=== PATIENT | female | born 1980 | race Caucasian/White ===

== ENCOUNTER 2016-08-06 16:23 | Inpatient (IN) | payer OTHER ==
[~2016-08-06] VITALS: Ht 157.5 cm; Wt 81.0 kg
[2016-08-06] MEDS ORDERED: PREN1TAB79 PO (16:47)
--- NOTE | 2016-08-06 17:14 | RADRPT ---
PROCEDURE: US biophysical profile. CLINICAL INDICATION: Decreased motion. TECHNIQUE: Multiple sonographic images of the uterus were obtained. The images were revi ewed on a PACS workstation. COMPARISON: No prior studies are available for comparison. FINDINGS: There is a single live intrauterine gestation. heart rate is 129 beats per minute. The position is cephalic. The placenta is posterior grade II with no abruption or previa. The MG is 24 cm. (Normal = 5-20 cm.) Breathing Movement: 2 Gross Body Movement: 2 Tone: 2 Qualitative Amniotic Fluid Volume: 2 TOTAL: 8 IMPRESSION: 1. The biophysical score is 8/8. 2. Mild polyhydramnios. RPTAT: QQ .Berny Campo MD, Date Time Electronically viewed and signed by .Berny Campo MD, on 08/06/2016 17:14 .R/
--- NOTE | 2016-08-06 17:22 | RADRPT ---
PROCEDURE: Obstetrical ultrasound. CLINICAL INDICATION: , evaluation. Pelvic pain. TECHNIQUE: Transabdominal sonographic images of the pelvis are obtained. COMPARISON: 12/19/2008 OB ultrasound FINDINGS: Single intrauterine gestation. There is a cephalic presentation. Measurements were made in order to determine age. The results are as follows: BPD = 9.53 cm HC = 35.53 cm AC = 33.12 cm FL = 7.09 cm Heart rate = 0.44 beats per minute The placenta is posterior. There is no evidence for an abruption or placenta previa. Ovaries are not visualized. IMPRESSION: Single intrauterine gestation of approximately 37 weeks 5 days by ultrasound criteria. [place] estimated weight = 3151 g; 71 percentile for gestational age of 36 weeks 4 days. RPTAT: AADD .Sharad Cox MD, Date Time Electronically viewed and signed by .Sharad Cox MD, on 08/06/2016 17:22 .B/
--- NOTE | 2016-08-06 19:19 | TRIAGE ---
OB Triage Datetime Report Generated by CPN: 08/06/2016 19:18 Datetime: 08/06/2016 19:07 Stage of : OB Triage Maternal Assessment Level of Consciousness: Fully Conscious DTR's/Clonus: DTRs 1+ Headache: Denies Breath Sounds, Left: Clear and Equal Breath Sounds, Right: Clear and Equal Nausea/Vomiting: Denies RUQ Epigastric Pain: Denies Labor Evaluation Frequency: 5-12 Monitor Mode: External Duration (sec)2399: 40-90 Quality: Mild Pattern: Normal: <= 5 Contractions in 10 Minutes Resting Tone [place]: Relaxed Heart Rate FHR Baseline Rate: 135 Monitor Mode: External US Variability: Moderate 6-25 bpm Accelerations: 15X15 Decelerations: None Category: Category I Pain Assessment Pain Scale: 9 Pain Presence: Intermittent Pain Type: Contraction Pain Location: Back Pain Goal: 3 Pain Relief Measures: Comfort Measures Membrane Status: Intact Datetime: 08/06/2016 18:00 Stage of : OB Triage Maternal Assessment Level of Consciousness: Fully Conscious DTR's/Clonus: DTRs 1+ Headache: Denies Breath Sounds, Left: Clear and Equal Breath Sounds, Right: Clear and Equal Nausea/Vomiting: Denies RUQ Epigastric Pain: Denies Labor Evaluation Frequency: 2-16 Monitor Mode: External Duration (sec)2399: 40-90 Quality: Mild Pattern: Normal: <= 5 Contractions in 10 Minutes Resting Tone [place]: Relaxed Heart Rate FHR Baseline Rate: 135 Monitor Mode: External US Variability: Moderate 6-25 bpm Accelerations: 15X15 Decelerations: None Category: Category I Pain Assessment Pain Scale: 8 Pain Presence: Intermittent Pain Type: Contraction Pain Location: Back Pain Goal: 3 Pain Relief Measures: Comfort Measures Membrane Status: Intact Datetime: 08/06/2016 16:59 Maternal Assessment Level of Consciousness: Fully Conscious DTR's/Clonus: DTRs 1+ Headache: Denies Blurred Vision: No Respiratory Effort: Unlabored Breath Sounds, Left: Clear and Equal Breath Sounds, Right: Clear and Equal Nausea/Vomiting: Denies RUQ Epigastric Pain: Denies Facial Edema: None Labor Evaluation Frequency: 2-6 Monitor Mode: External Duration (sec)2399: 40-90 Quality: Mild Pattern: Normal: <= 5 Contractions in 10 Minutes Resting Tone [place]: Relaxed Heart Rate FHR Baseline Rate: 135 Monitor Mode: External US Variability: Moderate 6-25 bpm Accelerations: 15X15 Decelerations: None Category: Category I Pain Assessment Pain Scale: 8 Pain Presence: Intermittent Pain Type: Contraction Pain Location: Back Pain Goal: 3 Pain Relief Measures: Comfort Measures Membrane Status: Intact Datetime: 08/06/2016 16:40 EGA: 36.4 Datetime: 08/06/2016 16:38 Vaginal Exam Dilatation (cms): 2.5 Effacement (%): 80 Station: -2 Exam By: LUZ ELENA GARCIA Vaginal Bleeding: None Cervix, Consistency: Soft Cervix, Position: Midposition Presentation 'A': Cephalic Datetime: 08/06/2016 16:26 Assessment Type: Triage Maternal Assessment Level of Consciousness: Fully Conscious DTR's/Clonus: DTRs 2+; No Clonus Headache: Denies Blurred Vision: No Respiratory Effort: Unlabored; Regular Rhythm; Equal Expansion Breath Sounds, Left: Clear and Equal Breath Sounds, Right: Clear and Equal Nausea/Vomiting: Denies RUQ Epigastric Pain: Denies Lower Extremities Edema: None Degree: None Upper Extremities Edema: None Degree: None Facial Edema: None Fall Risk Assessment History of Falling: (0) No Secondary Diagnosis: (0) No Ambulatory Aid: (0) Bedrest/Nurse Assist IV Therapy: (0) No Gait: (0) Normal/Bedrest/Immobile Mental Status: (0) Oriented to Own Ability Fall Score: 0 Fall Risk Score Definition: No Risk: No action required Datetime: 08/06/2016 16:18 Time of Arrival: 08/06/2016 16:18 Arrived By: Wheelchair Arrived From: Dr. Arthur Chief Complaint: PT CAME IN C/O UC'S Q 5 MIN AND VAGINAL PRESSURE SINCE 3 DAYS AGO. PT CAME FROM [facility] WITH A PRESCRIPTION FOR BPP NST AND EFW Movement: Present Contractions: Denies/Absent Rupture of Membranes: Denies Vaginal Discharge: Denies Recent Sexual Intercouse: Denies Abdominal Trauma: Not Applicable Additional Patient Complaints: NONE Time Provider Notified: 08/06/2016 18:45 Provider Notified: JACKELINE Initial Plan: NST BPP AND EFW
[2016-08-06] MEDS ORDERED: LACTATED RINGER'S 1,000 ML IV PRN (19:44)
[2016-08-06] MEDS: LACTATED RINGER'S 1,000 ML IV SCH ×2 (19:47→22:46)
[2016-08-06] MEDS ORDERED: OXYTOCIN 30 UNITS/LR 500 ML IV PRN (20:00)
[2016-08-06] MEDS ORDERED: BUTORPHANOL 2 MG INJ IV PRN (20:00)
[2016-08-06] MEDS ORDERED: CARBOPROST 250 MCG INJ IM PRN (20:00)
[2016-08-06] MEDS ORDERED: METHYLERGONOVINE 0.2 MG INJ IM PRN (20:00)
[2016-08-06] MEDS ORDERED: IBUPROFEN 600 MG TAB PO PRN (20:00)
[2016-08-06] MEDS ORDERED: OXYTOCIN 30 UNITS/LR 500 ML IV SCH ×2 (20:00)
[2016-08-06] MEDS ORDERED: LIDOCAINE 1% (MPF) 30 ML INJ INJ PRN (20:00)
[2016-08-06] MEDS ORDERED: MISOPROSTOL 200 MCG TAB PR PRN (20:00)
[2016-08-06 20:13] LABS: ADD SCAN DIFF NO
[2016-08-06 20:27] VITALS: Ht 157.5 cm; Wt 81.0 kg
[2016-08-06 20:29] LABS: INR 0.89; PT RATIO 0.9
[2016-08-06 20:30] LABS: BASOPHILS % 0.1 % (0.0-2.0); EOSINOPHILS % 0.3 % (0.0-7.0); HEMATOCRIT 37.2 % (37.0-47.0); HEMOGLOBIN 12.6 g/dl (12.0-16.0); LYMPHOCYTES # 1.8 10^3/ul (0.8-2.9); LYMPHOCYTES % 18.4 % (15.0-51.0); MEAN CORPUSCULAR HEMOGLOBIN 28.8 pg (29.0-33.0); MEAN CORPUSCULAR HGB CONC 33.9 g/dl (32.0-37.0); MEAN CORPUSCULAR VOLUME 85.1 fl (82.0-101.0); MEAN PLATELET VOLUME 11.6 fl (7.4-10.4); MONOCYTE # 0.5 10^3/ul (0.3-0.9); NEUTROPHIL # 7.3 10^3/ul (1.6-7.5); NEUTROPHILS % 75.7 % (39.0-77.0); PARTIAL THROMBOPLASTIN TIME 25.7 Sec (25.0-35.0); PLATELET COUNT 179 10^3/UL (140-415); RED BLOOD COUNT 4.37 10^6/ul (4.20-5.40); RED CELL DISTRIBUTION WIDTH 13.9 % (11.5-14.5); WHITE BLOOD COUNT 9.7 10^3/ul (4.8-10.8)
[2016-08-06 20:45] LABS: BARBITURATES NEGATIVE (NEGATIVE); BENZODIAZEPINES NEGATIVE (NEGATIVE); CANNABINOIDS NEGATIVE (NEGATIVE); COCAINE NEGATIVE (NEGATIVE); OPIATES NEGATIVE (NEGATIVE)
[2016-08-07] MEDS: LACTATED RINGER'S 1,000 ML IV SCH ×3 (07:25→16:46)
--- NOTE | 2016-08-07 10:22 | HP ---
Date/Time of Note Date/Time of Note DATE: 08/07/16 TIME: 10:21 OB - History Hx of Present Free Text/Dictation @36+wks GA in labor : 5 Para: 2 Care: Good Care Ultrasounds: Normal mid trimester US Medical Complications: None Past Family/Social History * Past Medical, Surgical, Family and Obstetric Histories reviewed from chart. OB Admission Exam Physical Exam Abdomen: WNL Extremities: Normal Cervical Dilatation: 3cm Effacement: 75% Station: -1 Membranes: Intact Heart Rate: 140's Accelerations: Accelerations Present Decelerations: No Decelerations Varibility: Moderate Contractions on Admission: 6-10 Minutes Apart Last 72 hours Lab Results CBC & BMP 08/06/16 19:40 OB Assessment/Plan Reason for admission: observation Plan: Expectant Management JAY VIVEROS M.D. August 07, 2016 10:22
--- NOTE | 2016-08-07 15:55 | QN ---
Documentation Comment Patient progressed to /-1 AROm light Meconium Will start pitocin JAY VIVEROS M.D. August 07, 2016 15:55
[2016-08-07] MEDS ORDERED: OXYTOCIN 30 UNITS/LR 500 ML IV SCH (16:30)
[2016-08-07] MEDS ORDERED: FENTAnyl 2MCG/ML-ROPIV 0.2% 100 ML ONE (16:59)
[2016-08-07] MEDS ORDERED: ONDANSETRON 4 MG INJ IV PRN (17:00)
[2016-08-07] MEDS ORDERED: NALOXONE (0.4 MG/ML) INJ IV PRN (17:00)
[2016-08-07] MEDS ORDERED: FENTAnyl 2MCG/ML-ROPIV 0.2% 100 ML BAG EPI SCH (17:00)
[2016-08-07] MEDS ORDERED: EPHEDrine SULFATE 50 MG/5 ML SYG IV PRN (17:00)
[2016-08-08 00:40] VITALS: BP 111/60; PULSE 79; RESP 18
[2016-08-08] MEDS ORDERED: LACTATED RINGER'S 1,000 ML IV* SCH (01:09)
[2016-08-08] MEDS ORDERED: OXYTOCIN 30 UNITS/LR 500 ML IV PRN (01:30)
[2016-08-08] MEDS ORDERED: CARBOPROST 250 MCG INJ IM PRN (01:30)
[2016-08-08] MEDS ORDERED: METHYLERGONOVINE 0.2 MG INJ IM PRN (01:30)
[2016-08-08] MEDS ORDERED: LANOLIN 7 GM TUBE TOP PRN (01:30)
[2016-08-08] MEDS ORDERED: OXYCODONE/ASPIRIN (4.88/325) TAB PO PRN (01:30)
[2016-08-08] MEDS ORDERED: ZOLPIDEM 5 MG TAB PO PRN (01:30)
[2016-08-08] MEDS ORDERED: MISOPROSTOL 200 MCG TAB PR PRN (01:30)
[2016-08-08] MEDS ORDERED: BENZOCAINE 20% 56 ML SPRAY TOP PRN (01:30)
[2016-08-08] MEDS ORDERED: SENNA/DOCUSATE NA (8.6MG/50MG) TAB PO PRN (01:30)
[2016-08-08] MEDS ORDERED: WITCH HAZEL/GLYCERIN PAD PR PRN (01:30)
[2016-08-08 04:00] VITALS: BP 106/57; PULSE 80; RESP 18
[2016-08-08] MEDS: IBUPROFEN 600 MG TAB PO SCH ×4 (05:35→23:46)
[2016-08-08 08:00] VITALS: BP 112/72; RESP 20
[2016-08-08 08:35] LABS: ADD SCAN DIFF NO
[2016-08-08 08:39] LABS: BASOPHILS % 0.2 % (0.0-2.0); EOSINOPHILS % 0.2 % (0.0-7.0); HEMATOCRIT 34.1 % (37.0-47.0); HEMOGLOBIN 11.5 g/dl (12.0-16.0); LYMPHOCYTES # 1.5 10^3/ul (0.8-2.9); LYMPHOCYTES % 13.6 % (15.0-51.0); MEAN CORPUSCULAR HEMOGLOBIN 28.8 pg (29.0-33.0); MEAN CORPUSCULAR HGB CONC 33.7 g/dl (32.0-37.0); MEAN CORPUSCULAR VOLUME 85.3 fl (82.0-101.0); MEAN PLATELET VOLUME 11.4 fl (7.4-10.4); MONOCYTE # 0.6 10^3/ul (0.3-0.9); MONOCYTES % 5.6 % (0.0-11.0); NEUTROPHIL # 8.7 10^3/ul (1.6-7.5); NEUTROPHILS % 79.8 % (39.0-77.0); PLATELET COUNT 169 10^3/UL (140-415); RED CELL DISTRIBUTION WIDTH 13.6 % (11.5-14.5); WHITE BLOOD COUNT 10.9 10^3/ul (4.8-10.8)
[2016-08-08] MEDS: SENNA/DOCUSATE NA (8.6MG/50MG) TAB PO SCH ×2 (09:08→20:53)
[2016-08-08] MEDS: MAGNESIUM HYDROXIDE 30ML CUP PO SCH ×2 (09:08→20:52)
[2016-08-08 16:00] VITALS: BP 102/52; PULSE 79; RESP 18
[2016-08-08 20:15] VITALS: BP 102/55; PULSE 79; RESP 18
[2016-08-09 04:00] VITALS: BP 98/54; PULSE 76; RESP 18
[2016-08-09] MEDS: IBUPROFEN 600 MG TAB PO SCH ×2 (05:56→11:32)
[2016-08-09 08:33] VITALS: BP 107/55; PULSE 80; RESP 18
[2016-08-09] MEDS ORDERED: DIPHTH/TET/ACEL PERTUSS (ADULT) 0.5 ML VIAL IM* ONE (09:00)
[2016-08-09] MEDS: SENNA/DOCUSATE NA (8.6MG/50MG) TAB PO SCH (09:20)
[2016-08-09] MEDS: MAGNESIUM HYDROXIDE 30ML CUP PO SCH (09:32)
--- NOTE | 2016-08-09 09:33 | QN ---
Documentation Comment Late Entry Note 08/08/16 PPD#1 is stable afebrile tolerates diet No VB +BM +voids No sign of Depression VS stable Gen NAD Abd soft NT ND Genitalia No blood at perinium --->Discharge Home JAY VIVEROS M.D. August 09, 2016 09:33
--- NOTE | 2016-08-09 09:34 | DS ---
Date/Time of Note Date/Time of Note DATE: 08/09/16 TIME: 09:33 Discharge Summary Admission/Discharge Info Admit Date/Time August 06, 2016 at 18:45 Discharge Date/Time July Final Diagnosis Labor Full term Patient Condition: Stable Procedures Vaginal deivery Hospital Course Uneventful Home Meds Reported Medications Vit W-Ca,Fe,FA(<1 mg) ( Vitamins) 1 Each Tablet, 1 EACH PO, TAB 08/06/16 Primary Care Provider JAY Harrington M.D. August 09, 2016 09:34
--- NOTE | 2016-08-26 11:20 | LDN ---
Date/Time of Note Date/Time of Note DATE: 08/26/16 TIME: 11:19 Delivery Summary Placenta Delivered: Spontaneously Meconium: none Episiotomy: No Estimated blood loss: 200 Sponge & Needle done & correct: Yes All needle counts correct: Yes Any foreign bodies felt in the: No Problems: Infant Delivery Information Apgars 1 Minute: 9 5 Minute: 9 Suctioning Nose & mouth suctioned at ruth: Yes Delee suction performed: Yes Umbilical Cord Umbilical cord with: 3 Vessels Cord presentations: no nuchal cord Mother & Baby Disposition Disposition Mom & Baby to Maternity; Good: Yes Baby to NICU: No JAY VIVEROS M.D. Aug 26, 2016 11:20
== END 2016-08-09 16:45 | disposition home or self-care (01) | DRG 775 ==
LOC: OBT 16:23 → L-D 16:24 → OBT 18:45 → PP1 08-08 00:42
PROVIDERS: ADMIT Obstetrics & Gynecology; ATTEND Obstetrics & Gynecology
PROC: 10E0XZZ Delivery of Products of Conception, External Approach (ICD-10-PCS; principal; 2016-08-07)
PROC: 3E00X4Z Introduction of Serum, Toxoid and Vaccine into Skin and Mucous Membranes, External Approach (ICD-10-PCS; 2016-08-09)
DX: O60.14X0 Preterm labor third trimester with preterm delivery third trimester, not applicable or unspecified (principal); Z23 Encounter for immunization; Z3A.36 36 weeks gestation of pregnancy; Z37.0 Single live birth
CPT/HCPCS: 62319; 76815; 76818; 80307; 85025; 85610; 85730; 86592; 86900; 86901; 90715; A4310; G0463; J2590; J3010; J7120

== ENCOUNTER 2018-05-19 22:27 | Inpatient (IN) | payer MEDICAID ==
[~2018-05-19] VITALS: Ht 157.5 cm; Wt 85.0 kg
[2018-05-19 22:58] VITALS: Ht 157.5 cm; Wt 85.0 kg
[2018-05-19] MEDS ORDERED: LACTATED RINGER'S 1,000 ML IV PRN (23:32)
--- NOTE | 2018-05-19 23:45 | HP ---
Date/Time of Note Date/Time of Note DATE: 05/19/18 TIME: 23:36 OB - History Hx of Present Free Text/Dictation 38 y.o was sent from clinic for IOL at 39w2d with intact membrane. EFM shows UC's q2-6min CAT I tracing Initial VE /-2 GBS neg Her care initiated at 11w6d, had unevenful course. admitted for augmentation with pitocin. Chief Complaint: IOL Estimated Due Date: May 22, 2018 : 5 Para: 3 Spontaneous : 1 Therapeutic : 0 Care: Good Care Ultrasounds: Normal mid trimester US Obstetrical Complications: None Medical Complications: None Past Family/Social History * Past Medical, Surgical, Family and Obstetric Histories reviewed from chart. Blood Type: O+ Rubella: immune RPR/VDRL: Negative GBS Status: Negative HBsAG: Negative OB Assessment/Plan Reason for admission: induction of labor Other Assessment: IUP 39w2d in early labor Plan: Other (augmentation) VAN GRAVES MD May 19, 2018 23:45
[2018-05-20] MEDS ORDERED: BUTORPHANOL 2 MG INJ IV PRN
[2018-05-20] MEDS ORDERED: LIDOCAINE 1% (MPF) 30 ML INJ INJ PRN
[2018-05-20] MEDS ORDERED: IBUPROFEN 600 MG TAB PO PRN
[2018-05-20 00:50] VITALS: BP 115/68; PULSE 86; RESP 18
[2018-05-20] MEDS: LACTATED RINGER'S 1,000 ML IV SCH ×2 (01:42→12:15)
--- NOTE | 2018-05-20 08:09 | PREAC ---
Date/Time of Note Date/Time of Note DATE: 05/20/18 TIME: 08:08 Anesthesia Eval and Record Evaluation Time Pre-Procedure Interview DATE: 05/20/18 TIME: 08:08 Age 38 Sex female NPO: 8 hrs Preoperative diagnosis labor pain Planned procedure epidural Past Medical History Past Medical History: Includes : Gestational age: (39.3) Surgery & Anesthesia Issues No known issue Meds Anticoagulation: No Beta Amriela within 24 hr: No Reason Beta Mariela not given: Pt. not on B-Mariela No Active Prescriptions or Reported Meds Current Medications Lactated Ringer's 1,000 ml @ 125 mls/hr Q8H IV Last administered on 05/20/18at 01:42; Admin Dose 125 MLS/HR; Start 05/19/18 at 23:32 Butorphanol Tartrate (Stadol) 2 mg Q2H PRN IV .PAIN; Start 05/20/18 at 00:00 Lidocaine (Xylocaine 1% (Mpf)) 30 ml ONCE PRN INJ .EPISIOTOMY; Start 05/20/18 at 00:00 Oxytocin/Lactated Ringer's 500 ml @ 500 mls/hr ONCE POST IV ; Start 05/20/18 at 00:00 Oxytocin/Lactated Ringer's 500 ml @ 125 mls/hr POST IV ; Start 05/20/18 at 00:00 Ibuprofen (Motrin) 600 mg ONCE PRN PO .PAIN 1-5; Start 05/20/18 at 00:00 Lactated Ringer's 1,000 ml @ 2,000 mls/hr Q30M PRN IV .ANESTHESIA; Start 05/19/18 at 23:32 Oxytocin/Lactated Ringer's 500 ml @ 0 mls/hr ONCE PRN IV .VAGINAL BLEEDING; Start 05/20/18 at 00:00 Methylergonovine Maleate (Methergine) 0.2 mg ONCE PRN IM .VAGINAL BLEEDING; Start 05/20/18 at 00:00 Carboprost Tromethamine (Hemabate) 250 mcg ONCE PRN IM .VAGINAL BLEEDING; Start 05/20/18 at 00:00 Misoprostol (Cytotec) 1,000 mcg ONCE PRN [place] .VAGINAL BLEEDING; Start 05/20/18 at 00:00 Oxytocin/Lactated Ringer's 500 ml @ 0 mls/hr FOR INDUCTION IV Last administered on 05/20/18at 04:51; Admin Dose 1 MLS/HR; Start 05/20/18 at 00:00 Meds reviewed: Yes Allergies Coded Allergies: No Known Allergy (Unverified , 08/06/16) Allergies Reviewed: Yes Labs/Studies Labs Reviewed: Reviewed by anesthesiologist Result Diagram: 05/20/18 0130 Laboratory Tests 05/20/18 01:30 Blood Bank Test 05/20/18 01:30 Antibody Screen NEGATIVE Blood Type O POSITIVE Rh Immune Globulin Candidate NO test: Positive Studies: ECG (n/a), CXR (n/a) Pre-procedure Exam Last vitals Vital Signs Date Temp Pulse Resp B/P (MAP) Pulse Ox O2 O2 Flow FiO2 Time Delivery Rate 05/20/18 98.2 86 18 115/68 00:50 (84) Airway: Adequate mouth opening Mallampati: Mallampati I Teeth: Normal Lung: Normal Heart: Normal ASA Physical Status ASA physical status: 2 Emergency: None Planned Anesthetic Neuraxial: Epidural Pre-operative Attestations Prior to commencing anesthesia and surgery, the patient was re-evaluated, there was verification of: *The patient's identity *The results of appropriate recent lab work and preoperative vital signs *The above evaluation not changing prior to induction *Anesthetic plan, risk benefits, alternative and complications discussed with patient/family; questions answered; patient/family understands, accepts and wishes to proceed. CHACHA BARROS MD May 20, 2018 08:09
[2018-05-20] MEDS ORDERED: FENTAnyl 2MCG/ML-ROPIV 0.2% 100 ML ONE (08:19)
[2018-05-20] MEDS ORDERED: FENTAnyl 2MCG/ML-ROPIV 0.2% 100 ML BAG EPI SCH (09:30)
[2018-05-20] MEDS ORDERED: ONDANSETRON 4 MG INJ IV PRN (09:30)
[2018-05-20] MEDS ORDERED: NALOXONE (0.4 MG/ML) INJ IV PRN (09:30)
--- NOTE | 2018-05-20 14:50 | LDN ---
Date/Time of Note Date/Time of Note DATE: 05/20/18 TIME: 14:49 Delivery Summary term Placenta Delivered: Spontaneously Meconium: none Episiotomy: No Anesthesia type: Epidural Estimated blood loss: 300 Sponge & Needle done & correct: Yes All needle counts correct: Yes Any foreign bodies felt in the: No OSWALDO MCGUIRE MD May 20, 2018 14:50
[2018-05-20 16:30] VITALS: BP 119/63; PULSE 80; RESP 18
[2018-05-20] MEDS ORDERED: CARBOPROST 250 MCG INJ IM PRN ×2 (16:30)
[2018-05-20] MEDS ORDERED: ZOLPIDEM 5 MG TAB PO PRN (16:30)
[2018-05-20] MEDS ORDERED: ACETAMINOPHEN 325 MG TAB PO PRN (16:30)
[2018-05-20] MEDS ORDERED: DIPHENHYDRAMINE 25 MG CAP PO PRN (16:30)
[2018-05-20] MEDS ORDERED: SENNA/DOCUSATE NA (8.6MG/50MG) TAB PO PRN (16:30)
[2018-05-20] MEDS ORDERED: BENZOCAINE 20% 56 ML SPRAY TOP PRN (16:30)
[2018-05-20] MEDS ORDERED: MAGNESIUM HYDROXIDE 30ML CUP PO PRN (16:30)
[2018-05-20] MEDS ORDERED: WITCH HAZEL/GLYCERIN PAD PR PRN (16:30)
[2018-05-20] MEDS ORDERED: OXYTOCIN 30 UNITS/LR 500 ML IV SCH ×5 (16:30)
[2018-05-20] MEDS ORDERED: METHYLERGONOVINE 0.2 MG INJ IM PRN ×2 (16:30)
[2018-05-20] MEDS ORDERED: OXYTOCIN 30 UNITS/LR 500 ML IV PRN ×2 (16:30)
[2018-05-20] MEDS: LACTATED RINGER'S 1,000 ML IV* SCH (16:30)
[2018-05-20] MEDS ORDERED: MISOPROSTOL 200 MCG TAB PR PRN ×2 (16:30)
[2018-05-20] MEDS ORDERED: HYDROCODONE/APAP (5/325) TAB PO PRN (16:30)
[2018-05-20] MEDS: IBUPROFEN 800 MG TAB PO SCH ×2 (17:50→23:59)
[2018-05-20] MEDS: LANOLIN HPA 1 PKT TOP PRN (17:50)
[2018-05-20 20:15] VITALS: BP 113/59; PULSE 86; RESP 10
--- NOTE | 2018-05-20 20:48 | PAC ---
Date/Time of Note Date/Time of Note DATE: 05/20/18 TIME: 20:48 Post-Anesthesia Notes Post-Anesthesia Note Last documented vital signs Vital Signs Date Temp Pulse Resp B/P (MAP) Pulse Ox O2 O2 Flow FiO2 Time Delivery Rate 05/20/18 98.7 80 18 119/63 98 Room Air 16:30 (81) Activity: WNL Respiratory function: WNL Cardiovascular function: WNL Mental status: Baseline Pain reasonably controlled: Yes Hydration appropriate: Yes Nausea/Vomiting absent: No CHACHA BARROS MD May 20, 2018 20:48
[2018-05-21] VITALS: BP 109/62; PULSE 79; RESP 20
[2018-05-21] MEDS: LACTATED RINGER'S 1,000 ML IV* SCH (00:30)
[2018-05-21 04:03] VITALS: BP 95/56; PULSE 83; RESP 18
[2018-05-21] MEDS: IBUPROFEN 800 MG TAB PO SCH ×3 (05:37→17:48)
[2018-05-21 08:00] VITALS: BP 101/60; PULSE 85; RESP 20
[2018-05-21] MEDS: LANOLIN HPA 1 PKT TOP PRN (10:12)
[2018-05-21 11:37] VITALS: BP 114/53; PULSE 83; RESP 20
[2018-05-21 16:00] VITALS: BP 110/54; PULSE 82; RESP 18
--- NOTE | 2018-05-21 17:15 | DS ---
Date/Time of Note Date/Time of Note DATE: 05/21/18 TIME: 17:15 Obstetrical Discharge Record Final Diagnosis Final Diagnosis: Term delivered Other Final Diagnosis 28-year-old s/p normal vaginal delivery. PPD#1 - AF, VSS - Baby is doing well, at bed side. She is bonding well - Contraception methods with R/B/A/FR discussed - Continue care - Discharge home tomorrow - Rx and instruction given - Follow up in 2 and 6 weeks at clinic Vaginal Delivery Obstetrical Delivery: Spontaneous Condition on Discharge Physical Assessment Last Vitals: Vital Signs Date Temp Pulse Resp B/P (MAP) Pulse Ox O2 O2 Flow FiO2 Time Delivery Rate 05/21/18 98.3 82 18 110/54 Room Air 16:00 (72) 05/21/18 98 04:03 Voiding: Yes Bowel Movement: Yes Breast: Soft, non-tender Fundus: Firm Calf Tenderness: No Patient Condition: Stable ONESIMO BONDS May 21, 2018 17:15
--- NOTE | 2018-05-21 17:15 | PN ---
Date/Time of Note Date/Time of Note DATE: 05/21/18 TIME: 17:12 OB Subjective Subjective Subjective PPD# 1 Patient is doing well. She denies nausea, vomiting, shortness of breath, chest pain, headache. She has been ambulating without difficulty, tolerating regular diet. Pain is well controlled on current medications OB Objective Objective Objective Vital Signs Date Temp Pulse Resp B/P (MAP) Pulse Ox O2 O2 Flow FiO2 Time Delivery Rate 05/21/18 98.3 82 18 110/54 Room Air 16:00 (72) 05/21/18 98 04:03 General: AAO X 3, comfortable, NAD, appropriate mood and affect. ABD: +BS. Soft, non-tender. Uterus 2 cm below umbilicus Flank: No CVA tenderness (B/L) LE: Mild edema. No clubbing, cyanosis, thigh or calf tenderness (B/L). Homans 'sign is negative Laboratory Tests Test 05/20/18 01:30 05/21/18 06:48 05/21/18 08:00 White Blood Count 9.8 10^3/ul 11.0 10^3/ul Red Blood Count 4.21 10^6/ul 4.33 10^6/ul Hemoglobin 11.4 g/dl 11.9 g/dl Hematocrit 35.3 % 36.1 % Mean Corpuscular Volume 83.8 fl 83.4 fl Mean Corpuscular 27.1 pg 27.5 pg Hemoglobin Mean Corpuscular 32.3 g/dl 33.0 g/dl Hemoglobin Concent Red Cell Distribution 14.1 % 14.2 % Width Platelet Count 179 10^3/UL 204 10^3/UL Mean Platelet Volume 10.8 fl 10.7 fl Immature Granulocytes % 1.000 % 0.600 % Neutrophils % 74.6 % 78.9 % Lymphocytes % 17.3 % 14.2 % Monocytes % 6.4 % 5.8 % Eosinophils % 0.4 % 0.3 % Basophils % 0.3 % 0.2 % Nucleated Red Blood Cells 0.0 /100WBC 0.0 /100WBC % Immature Granulocytes # 0.100 10^3/ul 0.070 10^3/ul Neutrophils # 7.3 10^3/ul 8.6 10^3/ul Lymphocytes # 1.7 10^3/ul 1.6 10^3/ul Monocytes # 0.6 10^3/ul 0.6 10^3/ul Eosinophils # 0.0 10^3/ul 0.0 10^3/ul Basophils # 0.0 10^3/ul 0.0 10^3/ul Nucleated Red Blood Cells 0.0 10^3/ul 0.0 10^3/ul # Prothrombin Time 11.5 Sec Prothrombin Time Ratio 0.9 INR International 0.83 Normalized Ratio Activated 20.5 Sec Partial Thromboplast Time Rapid Plasma Reagin NONREACTIVE Hepatitis B Surface NEGATIVE Antigen Lab Scanned Report REFERENCE LAB [id number] OB Assessment/Plan Other plan: 28-year-old s/p normal vaginal delivery. PPD#1 - AF, VSS - Baby is doing well, at bed side. She is bonding well - Contraception methods with R/B/A/FR discussed - Continue care - Discharge home tomorrow - Rx and instruction given - Follow up in 2 and 6 weeks at clinic ONESIMO BONDS May 21, 2018 17:15
[2018-05-21 20:00] VITALS: BP 118/70; PULSE 97; RESP 19
[2018-05-22] MEDS: IBUPROFEN 800 MG TAB PO SCH ×3 (00:24→12:06)
[2018-05-22 04:00] VITALS: BP 99/53; PULSE 78; RESP 19
[2018-05-22 08:15] VITALS: BP 113/59; PULSE 89; RESP 17
[2018-05-22] MEDS ORDERED: MEASLES,MUMPS,RUBELLA VACCINE INJ SC* ONE (09:00)
[2018-05-22] MEDS ORDERED: DIPHTH/TET/ACEL PERTUSS (ADULT) 0.5 ML VIAL IM* ONE (09:00)
[2018-05-22] MEDS ORDERED: VARICELLA VACCINE LIVE/PF 1,350 UNIT/0.5 ML ML SC* ONE (09:00)
== END 2018-05-22 14:05 | disposition home or self-care (01) | DRG 807 ==
LOC: OBT 22:27 → L-D 22:29 → OBT 22:30 → L-D 22:51 → PP1 05-20 16:22
PROVIDERS: ADMIT Obstetrics & Gynecology; ATTEND Obstetrics & Gynecology
PROC: 10E0XZZ Delivery of Products of Conception, External Approach (ICD-10-PCS; principal; 2018-05-20)
DX: O80 Encounter for full-term uncomplicated delivery (principal); Z37.0 Single live birth; Z3A.39 39 weeks gestation of pregnancy; Z23 Encounter for immunization
CPT/HCPCS: 62319; 76815; 85025; 85610; 85730; 86592; 86850; 86900; 86901; 87340; 90686; 90715; 90716; J2590; J3010; J7120